=== PATIENT | male | born 1970 | race Caucasian/White ===

== ENCOUNTER 2017-09-28 11:02 | Emergency (ER) | payer OTHER, SELFPAY ==
[2017-09-28 11:37] VITALS: BP 122/98; PULSE 107; RESP 20; TEMP 37.3; O2SAT 96; BMI 55.3
--- NOTE | 2017-09-28 11:44 | XR_ITS ---
XR chest 2V Ordering Physician: Luis Daniel Drew MD Patient Age: 46 years: Male HISTORY: ITS.REASON: COUGHcongestion both lungs are left greater than right TECHNIQUE: PA and lateral chest COMPARISON : Previous 2 view chest 11/08/2012 FINDINGS Lungs hyperexpanded but clear with no active disease. No focal pneumonia. Heart damaso and mediastinal structures satisfactory & stable. . no pneumothorax. No pleural effusion. But note is made of what appears to be a healing lateral ninth rib fracture..This may be recent but but does not appear acute.. Clinical correlation required. Current symptoms reportedly on the left. Stable small calcified granuloma towards right apex IMPRESSION: Lungs clear with no acute cardiopulmonary disease Subtle right ninth rib fracture noted. Appears to be a healing rib fracture, not acute.
[2017-09-28 12:16] LABS: Strep Scrn Group A (Rapid) Negative (Negative)
--- NOTE | 2017-09-28 12:54 | [facility].EDFEV ---
ED Disposition Clinical Impression: Vomiting and diarrhea, Hyponatremia Disposition: Home, Self-Care Condition on Discharge: Fair Additional Instructions: Stay on Clear liquids for 24 hour and use meds as directed. Add a little salt to diet Prescriptions: Loperamide HCl [Imodium 2 mg capsule] 4 mg PO DIRECTED 5 Days #30 cap Ondansetron HCl [Zofran 4mg Tab] 4 mg PO Q6H 10 Days #40 tab Referrals: Edwin Olivera MD [Primary Care Provider] - Time of Disposition: 15:39 - Critical Care Critical Care Time: No Attestation: On 09/28/17, the high probability of a clinically significant, sudden or life threatening deterioration of the following system(s) required my full and direct attention, intervention and personal management. The time I documented below is in addition to time spent performing reported procedures but includes the following listed in this critical care notation. Medical Decision Making - Medical Records Medical records reviewed: Yes: I reviewed the patient's medical records. Vital Signs: 09/28/17 11:37 Temperature 99.1 F Temperature Source Oral Pulse Rate [Right Radial] 107 H Respiratory Rate 20 Blood Pressure [Right Arm] 122/98 Blood Pressure Mean [Right Arm] 106 Blood Pressure Position [Right Arm] Sitting 02 Sat by Pulse Oximetry 96 - Lab Data Lab results reviewed: Yes: I reviewed the patient's lab results. Lab Results 09/28/17 11:48: Influenza Type A Ag Negative, Influenza Type B Ag Negative, Group A Strep Rapid Negative 09/28/17 13:15: WBC 6.3, RBC 4.96, Hgb 15.4, Hct 42.1, MCV 84.8, MCH 31.0, MCHC 36.6 H, RDW 15.3, Plt Count 161, MPV 7.9, Neut % (Auto) 75.1, Lymph % (Auto) 13.3, [place] % (Auto) 11.2 H, Eos % (Auto) 0.2, Baso % (Auto) 0.2, Neut # (Auto) 4.7, Lymph # (Auto) 0.8, [place] # (Auto) 0.7, Eos # (Auto) 0.0, Baso # (Auto) 0.0 09/28/17 13:15: Sodium 127 L, Potassium 3.0 L, Chloride 89 L, Carbon Dioxide 30, Anion Gap 11.0, BUN 15, Creatinine 1.75 H, Estimated Creat Clear 55, Estimated GFR 42 L, Est GFR ( Amer) 51 L, Glucose 103, Calcium 8.5, Total Bilirubin 0.5, AST 163 H, ALT 122 H, Alkaline Phosphatase 92, Total Creatine Kinase 238, CK-MB (CK-2) 1.2, CK-MB (CK-2) Rel Index 0.5, Troponin I < 0.02, Total Protein 7.7, Albumin 3.6, Globulin 4.1 H, Albumin/Globulin Ratio 0.9 L, Plasma/Serum Alcohol 0 09/28/17 13:15: Lactic Acid 1.2 Result diagrams: 09/28/17 13:15 09/28/17 13:15 Orders (Tests/Meds): ED MEDICATIONS Discontinued Medications Generic Name Dose Route Start Last Admin Trade Name Freq PRN Reason Stop Dose Admin Sodium Chloride 1,000 mls @ 999 mls/hr 09/28/17 13:15 09/28/17 14:09 Sod Chlor 0.9% 1000ml Bag IV 09/28/17 14:15 Not Given .Q1H1M ADAM Lactated Ringer's 1,000 mls @ 999 mls/hr 09/28/17 13:30 09/28/17 13:41 Lactated Ringer's 1000 Ml Bag IV 09/28/17 14:30 999 mls/hr .Q1H1M ADAM Administration ORDERS Category Date Time Status Blood Culture Stat Micro 09/28/17 13:15 Received Strep Screen Confirmation Stat Micro 09/28/17 11:48 Received - Radiology Data #1 Image(s): Chest Image Reviewed: Yes I reviewed the patient's radiology results, Yes I reviewed the patient's radiology image, Yes I discussed the image results w/the radiologist, Yes I have reviewed radiologist's interpretation, Yes I reviewed the patient's radiology image w/the ED provider Preliminary Findings: Normal/NAD - CT Data CT Scan: Head Time Received: 15:[address] Reviewed: Yes: I have reviewed the patient's CT results, I discussed the CT results w/the radiologist Preliminary Findings: Normal/NAD - Praveen Inquiry Pt receiving controlled substance: No Praveen was queried for this patient: No Fever HPI - General Chief Complaint: Fever Stated Complaint: achey body vomiting diarrhea dizzy Time Seen by Provider: 09/28/17 12:54 Mode of Arrival: Ambulatory Limitations: No Limitations Description of Symptoms (Recalled from ER Triage Doc. by RN):
--- NOTE | 2017-09-28 13:01 | CT_ITS ---
CT head/brain wo con HISTORY. Syncope. Headache . No previous studies for comparison TECHNIQUE Routine axial images for brain followed by additional post-processing axial bone window images. Axial CT scanning from the base of the skull through the vertex to evaluate the brain was performed.. No discrete acute intracranial findings. No hemorrhage No mass lesion nor mass effect. No territorial infarct. No subdural collection. The ventricles appear normal. Suggestion of Early cerebral atrophy slightly more evident than typically seen for age 46. Generous CSF space posteriorly at midline and to the left most likely reflecting mainly cisterna magna. No mass effect here to suggest arachnoid cyst formation. Slightly more generous cavernous sinus on the left most likely normal. Would also note that generous superior sagittal sinuses, normal vascular upper normal prominence. These features are most likely normal but normal but if headaches persist consider follow-up CTV CTA head . Paranasal sinuses. Mild diffuse mucosal thickening at the top of the maxillary sinuses, moderate mucosal thickening ethmoid air cells and inferior right sphenoid sinus.. Frontal sinuses with mild mucosal thickening. Mastoid air cells are well-developed and clear. Middle air and IACs unremarkable. Cerumen at the right external canal. Skull intact. . IMPRESSION-------- 1. no acute intracranial findings. No mass lesions nor mass effect 2. Incidental observations as described in text. These included: ... Mild chronic appearing mucosal thickening throughout the paranasal sinuses. ... Generous cisterna magna midline and to the left overlying posterior fossa. ... Mild asymmetry left cavernous sinus most likely normal variation; as is appearance of generous superior sagittal sinus. However If headaches persist consider further evaluation with postcontrast studies described in text
[2017-09-28 13:26] LABS: Basophils % 0.2 % (0.1-2.0); Eosinophils % 0.2 % (0.1-12.0); Hematocrit 42.1 % (42.0-52.0); Hemoglobin 15.4 g/dL (14.1-18.0); Lymphocytes # 0.8 K/mm3 (0.7-4.5); Lymphocytes % 13.3 K/mm3 (10-50); Mean Corpuscular HGB Conc 36.6 g/dL (31.8-35.4); Mean Corpuscular Volume 84.8 fl (80-94); Mean Platelet Volume 7.9 fl (7.4-10.4); Monocytes # 0.7 K/mm3 (0.1-1.0); Monocytes % 11.2 % (1.7-9.3); Neutrophils # 4.7 K/mm3 (1.8-7.8); Neutrophils % 75.1 % (37.0-80.0); Platelet Count 161 K/mm3 (142-424); Red Blood Count 4.96 M/mm3 (4.60-6.20); Red Cell Distribution Width 15.3 % (11.5-17.5); White Blood Count 6.3 K/mm3 (4.8-10.8)
[2017-09-28 13:44] LABS: Lactic Acid 1.2 mmol/L (0.4-2.0)
[2017-09-28 13:59] LABS: Alanine Aminotransferase 122 U/L (12-78); Albumin Level 3.6 gm/dL (3.4-5.0); Albumin/Globulin Ratio 0.9 (1.1-1.8); Alkaline Phosphatase 92 U/L (46-116); Aspartate Amino Transferase 163 U/L (15-37); Bilirubin,Total 0.5 mg/dL (0.2-1.0); Blood Urea Nitrogen 15 mg/dL (7-18); CKMB Relative Index 0.5 U/L (0-4.0); Calcium 8.5 mg/dL (8.5-10.1); Carbon Dioxide 30 mmol/L (21.0-32.0); Chloride 89 mmol/L (98-107); Creatine Kinase 238 U/L (39-308); Creatine Kinase MB 1.2 mg/ml (0.0-3.6); Creatinine Clearance Estimated 55 mL/min (0-300); Creatinine,Serum 1.75 mg/dL (0.70-1.30); Estimated Glomerular Filt Rate 42 ml/min (>60); Ethyl Alcohol 0 mg/dL (0-99); GFR (African American) 51 ML/MIN (>60); Globulin 4.1 gm/dl (1.3-3.2); Glucose 103 mg/dL (74-106); Sodium 127 mmol/L (136-145); Total Protein,Serum 7.7 gm/dL (6.4-8.2); Troponin I < 0.02 ng/ml (0.00-0.06)
[2017-09-28 15:48] VITALS: BP 140/74; PULSE 74; RESP 20; TEMP 36.7; O2SAT 100
== END 2017-09-28 15:48 | disposition home or self-care (01) ==
PROVIDERS: Emergency Provider General Practice; Family Provider Physician Assistant; PCP Emergency Medicine
DX: R11.10 Vomiting, unspecified (principal); R19.7 Diarrhea, unspecified; E87.1 Hypo-osmolality and hyponatremia; F17.210 Nicotine dependence, cigarettes, uncomplicated
CPT/HCPCS: 70450; 71046; 80053; 82550; 82553; 83605; 84484; 85025; 87040; 87275; 87276; 87430; 96365; 99283